=== PATIENT | male | born 1985 | race Caucasian/White ===

== ENCOUNTER 2018-08-20 09:57 | Day surgery (SDC) | payer OTHER ==
[~2018-08-20 09:57] MED LIST: SOD CHLORIDE 0.9% 1,000 ML IV
[2018-08-20] MEDS ORDERED: POLYMYXIN/BACITRACIN 1L IRRIG (12:03)
[2018-08-20] MEDS ORDERED: BUPIVACAINE 0.25% (MPF) 30 ML INJ (12:03)
[2018-08-20 12:29] LABS: ADD MAN DIFF? NO
[2018-08-20 12:33] LABS: BASOPHIL # 0.1 10^3/ul (0.0-0.1); BASOPHILS % 0.5 % (0.0-2.0); EOSINOPHILS # 0.1 10^3/ul (0.0-0.5); EOSINOPHILS % 1.4 % (0.0-7.0); HEMATOCRIT 44.5 % (42.0-52.0); HEMOGLOBIN 15.2 g/dl (14.0-18.0); LYMPHOCYTES # 1.7 10^3/ul (0.8-2.9); LYMPHOCYTES % 16.7 % (15.0-51.0); MEAN CORPUSCULAR HEMOGLOBIN 31.3 pg (29.0-33.0); MEAN CORPUSCULAR HGB CONC 34.2 g/dl (32.0-37.0); MEAN CORPUSCULAR VOLUME 91.8 fl (82.0-101.0); MEAN PLATELET VOLUME 10.2 fl (7.4-10.4); MONOCYTE # 0.7 10^3/ul (0.3-0.9); MONOCYTES % 7.2 % (0.0-11.0); NEUTROPHIL # 7.3 10^3/ul (1.6-7.5); NEUTROPHILS % 73.9 % (39.0-77.0); PLATELET COUNT 294 10^3/UL (140-415); RED BLOOD COUNT 4.85 10^6/ul (4.70-6.10); RED CELL DISTRIBUTION WIDTH 11.8 % (11.5-14.5)
[2018-08-20 12:33] LABS: WHITE BLOOD COUNT 9.9 10^3/ul (4.8-10.8)
[2018-08-20 12:51] LABS: INR 0.95; PROTIME 12.8 Sec (11.9-14.9)
[2018-08-20 12:52] LABS: PARTIAL THROMBOPLASTIN TIME 28.4 Sec (23.0-35.0)
[2018-08-20 12:53] LABS: ALANINE AMINOTRANSFERASE 34 IU/L (13-69); ALBUMIN 4.5 g/dl (3.3-4.9); ALBUMIN/GLOBULIN RATIO 1.73; ALKALINE PHOSPHATASE 60 IU/L (42-121); ANION GAP 11 (5-13); ASPARTATE AMINO TRANSFERASE 30 IU/L (15-46); BILIRUBIN,INDIRECT 1.3 mg/dl (0-1.1); BILIRUBIN,TOTAL 1.3 mg/dl (0.2-1.3); BLOOD UREA NITROGEN 9 mg/dl (7-20); CALCIUM 9.8 mg/dl (8.4-10.2); CARBON DIOXIDE 25 mmol/L (21-31); CHLORIDE 106 mmol/L (97-110); CREATININE 0.68 mg/dl (0.61-1.24); Estimated GFR > 60 mL/min (>60); GLUCOSE 81 mg/dl (70-220); SODIUM 142 mmol/L (135-144); TOTAL PROTEIN 7.1 g/dl (6.1-8.1)
[2018-08-20] MEDS ORDERED: LIDOCAINE 2% (SDV) 5 ML INJ (12:58)
[2018-08-20] MEDS ORDERED: PROPOFOL 20 ML ×2 (12:58→13:18)
[2018-08-20] MEDS ORDERED: FENTAnyl 50 MCG/ML VIAL ×2 (12:59→13:53)
[2018-08-20] MEDS ORDERED: FAMOTIDINE 20 MG INJ (13:18)
[2018-08-20] MEDS ORDERED: CEFAZOLIN 1 GM INJ (13:18)
[2018-08-20] MEDS ORDERED: DEXAMETHASONE 4 MG/ML 5 ML INJ (13:18)
[2018-08-20] MEDS ORDERED: ONDANSETRON 4 MG INJ (13:18)
[2018-08-20] MEDS ORDERED: ROCURONIUM 50 MG INJ (13:29)
[2018-08-20] MEDS: LIDOCAINE 1% (MPF) 30 ML INJ (13:55)
[2018-08-20] MEDS: BUPIVACAINE 0.5% (SDV) 30 ML INJ (13:55)
[2018-08-20] MEDS ORDERED: MEPERIDINE 25 MG INJ IV (14:00)
[2018-08-20] MEDS ORDERED: OXYCODONE/ACETAMINOPHEN (5/325) TAB PO (14:00)
[2018-08-20] MEDS ORDERED: FENTAnyl 50 MCG/ML VIAL IV (14:00)
[2018-08-20] MEDS ORDERED: HYDROmorphONE 1 MG/5 ML IV SYRINGE IV (14:00)
[2018-08-20] MEDS ORDERED: GLYCOPYRROLATE 0.4 MG INJ (14:47)
[2018-08-20] MEDS ORDERED: NEOSTIGMINE 3 MG/3 ML SYRINGE (14:47)
[2018-08-20] MEDS ORDERED: KETOROLAC 30 MG INJ (14:52)
[2018-08-20] MEDS: CEFAZOLIN 1 GM/50 ML (PMX) 50 ML IVPB (15:07)
[2018-08-20] MEDS: HYDROmorphONE 1 MG/5 ML IV SYRINGE IV (15:15)
[2018-08-20] MEDS: ONDANSETRON 4 MG INJ IV (15:16)
[2018-08-20] MEDS: OXYCODONE/ACETAMINOPHEN (5/325) TAB PO (15:16)
== END 2018-08-20 17:56 | disposition home or self-care (01) ==
LOC: SDS 09:57
DX: K40.20 Bilateral inguinal hernia, without obstruction or gangrene, not specified as recurrent (principal)
CPT/HCPCS: 49505; 80053; 85025; 85610; 85730